=== PATIENT | female | born 1950 | race Caucasian/White ===

== ENCOUNTER 2017-10-19 10:06 | Outpatient (CLI) | payer MEDICARE | END 2017-10-19 10:07 | disposition home or self-care (01) | LOC: BICMAMMO 10:06 | PROVIDERS: ATTEND Nurse Practitioner Family | DX: Z12.31 Encounter for screening mammogram for malignant neoplasm of breast (principal); Z00.00 Encounter for general adult medical examination without abnormal findings; N63.20 Unspecified lump in the left breast, unspecified quadrant | CPT/HCPCS: 77063; 77067 ==

== ENCOUNTER 2017-11-07 09:47 | Outpatient (CLI) | payer MEDICARE, OTHER | END 2017-11-07 09:48 | disposition home or self-care (01) | LOC: BICMRI 09:47 | PROVIDERS: ATTEND Nurse Practitioner Family | DX: M51.36 Other intervertebral disc degeneration, lumbar region (principal); M99.83 Other biomechanical lesions of lumbar region; M99.84 Other biomechanical lesions of sacral region | CPT/HCPCS: 72148 ==

== ENCOUNTER 2018-07-24 15:36 | Emergency (ER) | payer MEDICARE ==
[2018-07-24] MEDS ORDERED: Ondansetron PF 4 MG/2 ML Vial ONE (16:24)
[2018-07-24] MEDS ORDERED: Morphine 4 MG/ML VIAL ONE (16:24)
[2018-07-24 16:35] LABS: Bilirubin Negative (Negative); Blood, Urine Large (Negative); Clarity CLEAR (Clear); Glucose, Urine (Dipstick) Negative (Negative); Leukocyte Large (Negative); Nitrite Positive (Negative); Protein, Urine (Dipstick) 100 mg/dL (Neg-Trace); Specific Gravity, Urine 1.003 (1.002-1.036); Urobilinogen 0.2 mg/dL (0.2-1.0)
[2018-07-24 16:37] LABS: #Eosinphils 0.1 thou/uL (0.0-0.7); #Lymphocytes 1.6 thou/uL (1.20-3.40); #Monocytes 0.6 thou/uL (0.11-0.59); #Neutrophils 8.4 thou/uL (1.40-6.50); %Basophils 0.1 % (0.0-1.0); %Eosinophils 0.8 % (0.0-10.0); %Lymphocytes 15.1 % (21.0-51.0); %Monocytes 5.4 % (0.0-10.0); %Neutrophils 78.6 % (42.0-75.0); Hemoglobin 14.6 g/dL (12.0-16.0); Mean Corpuscular HGB CONC 33.8 g/dL (32.0-36.0); Mean Corpuscular Volume 88.8 fL (78.0-98.0); Mean Platelet Volume 7.2 fL (7.4-10.4); Platelet Count 157 thou/uL (130-400); RBC Distribution Width 13.4 % (11.5-14.5); Red Blood Cell (RBC) Count 4.88 mill/uL (4.20-5.40); White Blood Cell (WBC) Count 10.7 thou/uL (4.8-10.8)
[2018-07-24 16:37] LABS: Bacteria/HPF Rare-Few HPF (None Seen); Hyaline Casts/LPF 0-3 HYALINE CAST LPF (0-3 Hyaline); Pathc Cast-AUWi Flag 0.29 (0-2.49); Squamous Epithelial 0-3 HPF (0-3); Yeast-AUWi Flag 76.3 (0-25.0)
[2018-07-24 16:46] LABS: Yeast-All Forms None Seen HPF (None Seen)
[2018-07-24 16:59] LABS: ALT (SGPT) 11 U/L (8-55); AST (SGOT) 20 U/L (5-34); Alkaline Phosphatase 105 U/L (40-150); Anion Gap 14 mmol/L (10-20); BUN (Urea Nitrogen) 4 mg/dL (9.8-20.1); Bilirubin, Total 1.1 mg/dL (0.2-1.2); Calc. Creatinine Clearance 0 mL/min (70-130); Calcium 9.2 mg/dL (7.8-10.44); Carbon Dioxide 27 mmol/L (23-31); Chloride 98 mmol/L (98-107); Estimated GFR-MDRD 66; Globulin 3.1 g/dL (2.4-3.5); Glucose 114 mg/dL (80-115); Lipase 31 U/L (8-78); Protein, Total 7.1 g/dL (6.0-8.3); Sodium 136 mmol/L (136-145)
[2018-07-24] MEDS ORDERED: cefTRIAXone\\ROCEPHIN 1 GM VIAL ONE (17:05)
[2018-07-24] MEDS ORDERED: Lorazepam 2 MG/ML VIAL ONE (17:12)
[2018-07-24] MEDS ORDERED: Potassium Chloride 20 MEQ TAB ONE (17:35)
--- NOTE | 2018-07-24 18:16 | CT ---
NONCONTRAST CT ABDOMEN AND PELVIS 07/24/18 HISTORY: Abdominal pain. Patient reports right sided flank pain. COMPARISON: CT angiogram abdomen on 09/11/14 as well as prior noncontrast CT pelvis on 09/02/11. FINDINGS: There is dependent atelectasis. Postcholecystectomy changes are present. Vascular calcifications are seen in the abdominal aorta and iliac arteries with dense vascular calcifications seen in the most di stal infrarenal abdominal aorta and involving the proximal common iliac arteries. The spleen is enlarged in AP dimensions measuring 14 cm. There is mild nonspecific periureteral inflammatory stranding of uncertain etiology. No renal or uret eral calculi are seen and there is no evidence of hydronephrosis. Each ureter is mildly prominent. In fection could not be entirely excluded. The liver, pancreas, and bilateral adrenal glands demonstrate a grossly normal nonenhanced CT appeara nce. The urinary bladder is decompressed. There are foci of gas seen in the urinary bladder which cold be related to recent catheterization, but clinical correlation is recommended. Uterus is small in size. Previously described large cystic mass in the pelvis is again noted and overall stable in size dating back to study in 2011 measuring 11 cm x 9.5 cm. There is colonic diverticulosis present. There is fluid attenuation seen within the region of the fundus of the stomach which is thought to mo st likely be related to fluid within the stomach as opposed to a cystic lesion. Loops of small bowel are normal in caliber. Small fat containing umbilical hernia is present. Degenerative changes are noted in the spine. IMPRESSION: 1. Nonspecific bilateral periureteral inflammatory changes. No renal or ureteral calculi are see n. While each ureter is mildly prominent, there is no hydronephrosis. Etiology for the mild periurete ral inflammatory stranding is uncertain. Infection cannot be entirely excluded. Correlation with urin alysis for urinary tract infection is recommended. 2. 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 3. Mild splenomegaly. 4. Postcholecystectomy changes. 5. Colonic diverticulosis. 6. Dense atherosclerotic vascular calcifications. 7. Gas within the urinary bladder which could be related to recent catheterization, but clinical correlation is recommended. POS: NITISH
== END 2018-07-24 17:09 | disposition home or self-care (01) ==
LOC: ERS 15:36
DX: N12 Tubulo-interstitial nephritis, not specified as acute or chronic (principal); E78.5 Hyperlipidemia, unspecified; F41.9 Anxiety disorder, unspecified; F32.9 Major depressive disorder, single episode, unspecified; F43.10 Post-traumatic stress disorder, unspecified; F17.210 Nicotine dependence, cigarettes, uncomplicated; Z79.899 Other long term (current) drug therapy
CPT/HCPCS: 74176; 80053; 81003; 81015; 83690; 85025; 96361; 96365; 96375; J0696; J2060; J2270; J2405

== ENCOUNTER 2024-04-14 13:06 | Outpatient (CLI) | payer MEDICARE | END 2024-04-14 13:07 | disposition home or self-care (01) | LOC: BICCT 13:06 | PROVIDERS: ATTEND Nurse Practitioner Family | DX: Z12.2 Encounter for screening for malignant neoplasm of respiratory organs (principal); J43.2 Centrilobular emphysema; J98.4 Other disorders of lung; J98.11 Atelectasis; R91.1 Solitary pulmonary nodule; R59.0 Localized enlarged lymph nodes; I25.10 Atherosclerotic heart disease of native coronary artery without angina pectoris; Z87.891 Personal history of nicotine dependence | CPT/HCPCS: 71271 ==